=== PATIENT | male | born 1975 | race Caucasian/White ===

== ENCOUNTER 2020-03-09 22:40 | Inpatient (IN) ==
[2020-03-09 23:10] LABS: Basophils % 0.4 % (0.0-0.8); Eosinophils % 0.8 % (0.00-10.9); Hematocrit 42.7 VOL% (42.0-52.0); Hemoglobin 13.9 GM/DL (14.0-18.0); Immature Granulocytes % 0.8 %; Immature Granulocytes Absolute 0.02 #; Lymphocytes # 0.5 10*3/uL (1.4-4.0); Lymphocytes % 19.8 % (21.2-54.2); Mean Corpuscular HGB Conc 32.6 GM/DL (32-36); Mean Corpuscular Volume 89.3 FL (87-102); Mean Platelet Volume 9.9 FL (9.6-12.0); Monocytes % 5.1 % (1.7-12.7); Neutrophils % 73.1 % (38.7-73.9); Platelet Count 143 T/CUMM (130-400); Red Blood Count 4.78 MC/CUMM (3.8-5.5); Red Cell Distribution Width 12.3 % (9.3-17.3); White Blood Count 2.6 T/CUMM (4-12)
[2020-03-09] MEDS ORDERED: cefTRIAXone 1,000 MG in SODIUM CHLORIDE 0.9% 100 ML IV STA (23:15)
[2020-03-09] MEDS ORDERED: SODIUM CHLORIDE 0.9% 1,000 ML IV STA (23:15)
[2020-03-09] MEDS ORDERED: ALBUTEROL/IPRATROPIUM 3 ML NEB RESP TX STA (23:15)
[2020-03-09] MEDS ORDERED: ACETAMINOPHEN 325 MG TABLET PO ONE (23:15)
[2020-03-09] MEDS ORDERED: AZITHROMYCIN INJ 500 MG in SODIUM CHLORIDE 0.9% 250 ML IV STA (23:15)
[2020-03-09 23:38] LABS: Albumin 3.6 G/DL (3.4-5.0); Bilirubin,Total 0.5 MG/DL (0.2-1.0); Calcium 8.1 MG/DL (8.5-10.1); Osmolality,Calculated 274.7 MOS/KG (273-304); Total Protein 7.2 G/DL (6.4-8.3)
[2020-03-09 23:50] LABS: Troponin I < 0.015 NG/ML (0.00-0.045)
[2020-03-10] MEDS ORDERED: GLUCAGON 1 MG VIAL IM PRN (00:17)
[2020-03-10] MEDS ORDERED: DEXTROSE 50% 25 GM/50 ML VIAL IV PRN (00:17)
[2020-03-10] MEDS ORDERED: hydrALAZINE 20 MG/1 ML VIAL IV PRN (00:17)
[2020-03-10] MEDS ORDERED: NICOTINE 21 MG/24 HR PATCH TRANSDERM PRN (00:17)
[2020-03-10] MEDS ORDERED: ONDANSETRON 4 MG/2 ML VIAL IV PRN (00:17)
[2020-03-10] MEDS: SODIUM CHLORIDE 0.9% 1,000 ML IV SCH ×3 (01:25→18:09)
[2020-03-10] MEDS: MELATONIN 3 MG TABLET PO SCH ×2 (02:00→20:30)
[2020-03-10] MEDS ORDERED: SALIVA SUBSTITUTE SPRAY 60 ML CAN SWISH/SPIT PRN (06:56)
[2020-03-10] MEDS ORDERED: MULTIVITAMIN INJ 10 ML in SODIUM CHLORIDE 0.9% 1,000 ML IV ONE (07:07)
[2020-03-10] MEDS ORDERED: SODIUM CHLORIDE 0.9% 1,000 ML IV PRN (07:18)
[2020-03-10 07:40] LABS: Ferritin 1224.7 ng/ml (26-388)
[2020-03-10] MEDS: ACETAMINOPHEN 325 MG TABLET PO PRN ×4 (08:15→20:30)
[2020-03-10] MEDS: AZITHROMYCIN 250 MG TABLET PO SCH (08:15)
[2020-03-10] MEDS ORDERED: ENOXAPARIN 100 MG/ML SYRINGE SUBCUT SCH (09:00)
[2020-03-10] MEDS: FAMOTIDINE 20 MG TABLET PO SCH (12:05)
[2020-03-10] MEDS: CHOLECALCIFEROL 1,000 UNIT TABLET PO SCH (14:35)
[2020-03-10] MEDS: ZINC GLUCONATE 50 MG TABLET PO SCH (14:35)
[2020-03-10] MEDS: ALBUTEROL INHALER 18 GM INH SCH ×2 (20:00→23:19)
[2020-03-10] MEDS: cefTRIAXone 1,000 MG in SYRINGE 1 EACH IV SCH (20:30)
[2020-03-10] MEDS: ASCORBIC ACID 500 MG TABLET PO SCH (20:30)
[2020-03-11] MEDS: ACETAMINOPHEN 325 MG TABLET PO PRN ×6 (00:30→20:55)
[2020-03-11] MEDS ORDERED: LORazepam 0.5 MG TABLET PO ONE (04:10)
[2020-03-11] MEDS: SODIUM CHLORIDE 0.9% 1,000 ML IV SCH ×2 (04:37→14:00)
[2020-03-11] MEDS: ALBUTEROL INHALER 18 GM INH SCH ×4 (04:38→20:54)
[2020-03-11 05:27] LABS: Basophils % 0.3 % (0.0-0.8); Hemoglobin 12.3 GM/DL (14.0-18.0); Immature Granulocytes % 0.8 %; Immature Granulocytes Absolute 0.03 #; Lymphocytes # 0.9 10*3/uL (1.4-4.0); Lymphocytes % 21.5 % (21.2-54.2); Mean Corpuscular HGB Conc 33.2 GM/DL (32-36); Mean Corpuscular Volume 87.5 FL (87-102); Mean Platelet Volume 10.3 FL (9.6-12.0); Monocytes % 4.3 % (1.7-12.7); Neutrophils % 73.1 % (38.7-73.9); Platelet Count 175 T/CUMM (130-400); Red Blood Count 4.23 MC/CUMM (3.8-5.5); Red Cell Distribution Width 12.6 % (9.3-17.3)
[2020-03-11 05:52] LABS: Band Neutrophils 9 % (0-10); Eosinophils 1 % (0-10); Lymphocytes 22 % (20-55); Platelet Estimate Adequate; Segmented Neutrophils 64 % (50-85); Total Cells Counted 100
[2020-03-11 05:53] LABS: Hypochromasia 1+
[2020-03-11 06:01] LABS: Calcium 7.5 MG/DL (8.5-10.1); Ferritin 1185.1 ng/ml (26-388); Osmolality,Calculated 269.1 MOS/KG (273-304)
[2020-03-11] MEDS: FAMOTIDINE 20 MG TABLET PO SCH (09:45)
[2020-03-11] MEDS: CHOLECALCIFEROL 1,000 UNIT TABLET PO SCH (09:45)
[2020-03-11] MEDS: ASCORBIC ACID 500 MG TABLET PO SCH ×2 (09:45→20:55)
[2020-03-11] MEDS: AZITHROMYCIN 250 MG TABLET PO SCH (09:45)
[2020-03-11] MEDS: ZINC GLUCONATE 50 MG TABLET PO SCH (09:45)
[2020-03-11] MEDS: ENOXAPARIN 40 MG/0.4 ML SYRINGE SUBCUT SCH (09:45)
[2020-03-11] MEDS: MELATONIN 3 MG TABLET PO SCH (20:54)
[2020-03-11] MEDS: cefTRIAXone 1,000 MG in SYRINGE 1 EACH IV SCH (20:54)
[2020-03-11] MEDS: LORazepam 2 MG/1 ML VIAL IV PRN (21:12)
[2020-03-12] MEDS: ACETAMINOPHEN 325 MG TABLET PO PRN ×6 (04:19→20:30)
[2020-03-12 05:35] LABS: Basophils % 0.2 % (0.0-0.8); Hematocrit 35.4 VOL% (42.0-52.0); Hemoglobin 11.9 GM/DL (14.0-18.0); Immature Granulocytes % 0.9 %; Immature Granulocytes Absolute 0.04 #; Lymphocytes # 0.7 10*3/uL (1.4-4.0); Lymphocytes % 17.2 % (21.2-54.2); Mean Corpuscular HGB Conc 33.6 GM/DL (32-36); Mean Corpuscular Volume 86.1 FL (87-102); Mean Platelet Volume 9.9 FL (9.6-12.0); Monocytes % 3.3 % (1.7-12.7); Neutrophils % 78.4 % (38.7-73.9); Platelet Count 195 T/CUMM (130-400); Red Blood Count 4.11 MC/CUMM (3.8-5.5); Red Cell Distribution Width 12.2 % (9.3-17.3); White Blood Count 4.3 T/CUMM (4-12)
[2020-03-12 06:14] LABS: Calcium 7.6 MG/DL (8.5-10.1); Ferritin 1089.3 ng/ml (26-388); Osmolality,Calculated 267.2 MOS/KG (273-304)
[2020-03-12] MEDS ORDERED: ZALEPLON 5 MG CAPSULE PO PRN (07:58)
[2020-03-12] MEDS: SODIUM CHLORIDE 0.9% 1,000 ML IV SCH ×3 (08:31→20:55)
[2020-03-12] MEDS: ZINC GLUCONATE 50 MG TABLET PO SCH (08:31)
[2020-03-12] MEDS: ENOXAPARIN 40 MG/0.4 ML SYRINGE SUBCUT SCH (08:31)
[2020-03-12] MEDS: AZITHROMYCIN 250 MG TABLET PO SCH (08:31)
[2020-03-12] MEDS: CHOLECALCIFEROL 1,000 UNIT TABLET PO SCH (08:31)
[2020-03-12] MEDS: ALBUTEROL INHALER 18 GM INH SCH ×4 (08:31→19:00)
[2020-03-12] MEDS: ASCORBIC ACID 500 MG TABLET PO SCH ×2 (08:31→20:31)
[2020-03-12] MEDS: FAMOTIDINE 20 MG TABLET PO SCH (08:31)
[2020-03-12] MEDS ORDERED: POTASSIUM CHLORIDE 20 MEQ TABLET PO ONE (09:00)
[2020-03-12] MEDS: MELATONIN 3 MG TABLET PO SCH (20:30)
[2020-03-12] MEDS: cefTRIAXone 1,000 MG in SYRINGE 1 EACH IV SCH (20:33)
[2020-03-12] MEDS: LORazepam 2 MG/1 ML VIAL IV PRN (20:39)
[2020-03-13] MEDS: ACETAMINOPHEN 325 MG TABLET PO PRN ×3 (00:35→09:41)
[2020-03-13] MEDS: ALBUTEROL INHALER 18 GM INH SCH ×4 (00:51→20:00)
[2020-03-13 07:03] LABS: Basophils % 0.2 % (0.0-0.8); Eosinophils % 0.2 % (0.00-10.9); Hematocrit 36.9 VOL% (42.0-52.0); Hemoglobin 12.4 GM/DL (14.0-18.0); Immature Granulocytes % 1.9 %; Immature Granulocytes Absolute 0.09 #; Lymphocytes # 0.8 10*3/uL (1.4-4.0); Lymphocytes % 16.6 % (21.2-54.2); Mean Corpuscular HGB Conc 33.6 GM/DL (32-36); Mean Corpuscular Volume 86.4 FL (87-102); Monocytes % 2.5 % (1.7-12.7); Neutrophils % 78.6 % (38.7-73.9); Platelet Count 222 T/CUMM (130-400); Red Blood Count 4.27 MC/CUMM (3.8-5.5); Red Cell Distribution Width 12.4 % (9.3-17.3); White Blood Count 4.8 T/CUMM (4-12)
[2020-03-13 07:19] LABS: Calcium 7.8 MG/DL (8.5-10.1); Osmolality,Calculated 269.1 MOS/KG (273-304)
[2020-03-13 07:33] LABS: Band Neutrophils 4 % (0-10); Eosinophils 1 % (0-10); Hypochromasia 1+; Lymphocytes 16 % (20-55); Microcytosis 1+; Platelet Estimate Adequate; Segmented Neutrophils 78 % (50-85); Total Cells Counted 100
[2020-03-13] MEDS: ASCORBIC ACID 500 MG TABLET PO SCH ×2 (09:41→21:08)
[2020-03-13] MEDS: AZITHROMYCIN 250 MG TABLET PO SCH (09:41)
[2020-03-13] MEDS: FAMOTIDINE 20 MG TABLET PO SCH (09:41)
[2020-03-13] MEDS: CHOLECALCIFEROL 1,000 UNIT TABLET PO SCH (09:41)
[2020-03-13] MEDS: ENOXAPARIN 40 MG/0.4 ML SYRINGE SUBCUT SCH (09:41)
[2020-03-13] MEDS: ZINC GLUCONATE 50 MG TABLET PO SCH (09:41)
[2020-03-13] MEDS: LORazepam 2 MG/1 ML VIAL IV PRN ×2 (10:36→21:14)
[2020-03-13] MEDS ORDERED: ACETAMINOPHEN 325 MG TABLET PO SCH (13:00)
[2020-03-13] MEDS: ACETAMINOPHEN 500 MG TABLET PO SCH ×3 (13:13→21:08)
[2020-03-13] MEDS: SODIUM CHLORIDE 0.65% NASAL SPRAY 45 ML BOTTLE BOTH NARES PRN (17:24)
[2020-03-13] MEDS: MELATONIN 3 MG TABLET PO SCH (21:08)
[2020-03-13] MEDS: cefTRIAXone 1,000 MG in SYRINGE 1 EACH IV SCH (21:10)
[2020-03-14] MEDS: ALBUTEROL INHALER 18 GM INH SCH ×4 (00:19→20:20)
[2020-03-14] MEDS: ACETAMINOPHEN 500 MG TABLET PO SCH ×6 (00:19→20:20)
[2020-03-14 06:00] LABS: Basophils % 0.4 % (0.0-0.8); Eosinophils % 0.6 % (0.00-10.9); Hemoglobin 12.3 GM/DL (14.0-18.0); Immature Granulocytes % 2.1 %; Lymphocytes % 21.2 % (21.2-54.2); Mean Corpuscular HGB Conc 33.2 GM/DL (32-36); Mean Platelet Volume 10.1 FL (9.6-12.0); Monocytes % 3.4 % (1.7-12.7); Neutrophils % 72.3 % (38.7-73.9); Platelet Count 260 T/CUMM (130-400); Red Cell Distribution Width 12.4 % (9.3-17.3); White Blood Count 4.8 T/CUMM (4-12)
[2020-03-14 06:30] LABS: Albumin 2.6 G/DL (3.4-5.0); Bilirubin,Total 0.7 MG/DL (0.2-1.0); Osmolality,Calculated 267.1 MOS/KG (273-304); Total Protein 6.4 G/DL (6.4-8.3)
[2020-03-14 06:38] LABS: Band Neutrophils 16 % (0-10); Eosinophils 2 % (0-10); Lymphocytes 22 % (20-55); Metamyelocytes 2 %; Nucleated Red Blood Cells 1 (0-5); Segmented Neutrophils 57 % (50-85); Total Cells Counted 100
[2020-03-14 06:39] LABS: Anisocytosis Slight
[2020-03-14 06:41] LABS: Ferritin 1354.6 ng/ml (26-388)
[2020-03-14] MEDS: FAMOTIDINE 20 MG TABLET PO SCH (09:20)
[2020-03-14] MEDS: ENOXAPARIN 40 MG/0.4 ML SYRINGE SUBCUT SCH (09:20)
[2020-03-14] MEDS: CHOLECALCIFEROL 1,000 UNIT TABLET PO SCH (09:20)
[2020-03-14] MEDS: ASCORBIC ACID 500 MG TABLET PO SCH ×2 (09:20→20:20)
[2020-03-14] MEDS: SODIUM CHLORIDE 0.65% NASAL SPRAY 45 ML BOTTLE BOTH NARES PRN (09:20)
[2020-03-14] MEDS: ZINC GLUCONATE 50 MG TABLET PO SCH (09:20)
[2020-03-14] MEDS: MELATONIN 3 MG TABLET PO SCH (20:20)
[2020-03-14] MEDS: LORazepam 2 MG/1 ML VIAL IV PRN (20:50)
[2020-03-15] MEDS: ALBUTEROL INHALER 18 GM INH SCH ×4 (00:53→20:05)
[2020-03-15] MEDS: ACETAMINOPHEN 500 MG TABLET PO SCH ×6 (00:53→20:05)
[2020-03-15 06:27] LABS: Albumin 2.8 G/DL (3.4-5.0); Bilirubin,Total 1.7 MG/DL (0.2-1.0); Calcium 8.1 MG/DL (8.5-10.1); Osmolality,Calculated 273.7 MOS/KG (273-304); Total Protein 6.3 G/DL (6.4-8.3)
[2020-03-15 06:40] LABS: Ferritin 1509.6 ng/ml (26-388)
[2020-03-15] MEDS: ASCORBIC ACID 500 MG TABLET PO SCH ×2 (09:21→20:05)
[2020-03-15] MEDS: FAMOTIDINE 20 MG TABLET PO SCH (09:21)
[2020-03-15] MEDS: ZINC GLUCONATE 50 MG TABLET PO SCH (09:21)
[2020-03-15] MEDS: CHOLECALCIFEROL 1,000 UNIT TABLET PO SCH (09:22)
[2020-03-15] MEDS: LOVENOX SUBCUT SCH ×2 (09:22→20:05)
[2020-03-15] MEDS: MELATONIN 3 MG TABLET PO SCH (20:05)
[2020-03-15] MEDS: LORazepam 2 MG/1 ML VIAL IV PRN (20:05)
[2020-03-16] MEDS: ALBUTEROL INHALER 18 GM INH SCH ×2 (00:35→06:01)
[2020-03-16] MEDS: ACETAMINOPHEN 500 MG TABLET PO SCH ×3 (00:36→08:32)
[2020-03-16 06:27] LABS: Albumin 2.7 G/DL (3.4-5.0); Bilirubin,Total 1.6 MG/DL (0.2-1.0); Calcium 8.6 MG/DL (8.5-10.1); Osmolality,Calculated 266.2 MOS/KG (273-304); Total Protein 7.1 G/DL (6.4-8.3)
[2020-03-16 06:29] LABS: Ferritin 1645.6 ng/ml (26-388)
[2020-03-16] MEDS: LOVENOX SUBCUT SCH (08:32)
[2020-03-16] MEDS: ZINC GLUCONATE 50 MG TABLET PO SCH (08:32)
[2020-03-16] MEDS: ASCORBIC ACID 500 MG TABLET PO SCH (08:32)
[2020-03-16] MEDS: FAMOTIDINE 20 MG TABLET PO SCH (08:32)
[2020-03-16] MEDS: CHOLECALCIFEROL 1,000 UNIT TABLET PO SCH (08:32)
[2020-03-16 11:23] VITALS: BP 128/74
== END 2020-03-16 12:48 | disposition home or self-care (01) | DRG 177 ==
LOC: N.ED 22:40 → N.EDINP 22:40 → SUATTDRO 03-10 00:17 → N.2W 03-10 00:36 → N.2E 03-13 14:04
PROVIDERS: ADMIT Hospitalist; ATTEND Internal Medicine